=== PATIENT | female | born 1990 | race Caucasian/White ===

== ENCOUNTER → 2024-09-12 16:30 | Outpatient (REF) | payer BC, SELFPAY | LOC: PNTC 16:30 | PROVIDERS: ATTENDING PHYSICIAN Obstetrics & Gynecology | DX: O98.511 Other viral diseases complicating pregnancy, first trimester (principal); O99.612 Diseases of the digestive system complicating pregnancy, second trimester; O99.320 Drug use complicating pregnancy, unspecified trimester; O99.210 Obesity complicating pregnancy, unspecified trimester; E72.12 Methylenetetrahydrofolate reductase deficiency; O09.519 Supervision of elderly primigravida, unspecified trimester | CPT/HCPCS: 76805 ==

== ENCOUNTER → 2024-10-09 14:07 | Outpatient (REF) | payer BC, SELFPAY | LOC: PNTC 14:07 | PROVIDERS: ATTENDING PHYSICIAN Obstetrics & Gynecology | DX: O35.5XX0 Maternal care for (suspected) damage to fetus by drugs, not applicable or unspecified (principal); O98.519 Other viral diseases complicating pregnancy, unspecified trimester; U07.1 COVID-19; O99.210 Obesity complicating pregnancy, unspecified trimester; O44.00 Complete placenta previa NOS or without hemorrhage, unspecified trimester; K50.90 Crohn's disease, unspecified, without complications | CPT/HCPCS: 76811; 76817 ==

== ENCOUNTER → 2024-11-06 09:42 | Outpatient (REF) | payer BC, SELFPAY | LOC: PNTC 09:42 | PROVIDERS: ATTENDING PHYSICIAN Obstetrics & Gynecology | DX: O44.20 Partial placenta previa NOS or without hemorrhage, unspecified trimester (principal); O98.519 Other viral diseases complicating pregnancy, unspecified trimester; O99.320 Drug use complicating pregnancy, unspecified trimester; O99.612 Diseases of the digestive system complicating pregnancy, second trimester | CPT/HCPCS: 76816; 76817 ==

== ENCOUNTER 2025-02-27 19:18 | Inpatient (IN) | payer BC, SELFPAY ==
[2025-02-27 19:21] VITALS: BMI 37.4
[2025-02-27 19:29] VITALS: BP 117/83
[2025-02-27 19:52] LABS: % Basophils 0.3 % (0-2); % Eosinophils 1.1 % (0-6); % Immature Granulocytes 0.5 % (0-0.5); % Lymphocytes 26.7 % (20.5-51.1); % Monocytes 6.6 % (1.7-9.3); % Neutrophils 64.8 % (42.2-75.2); Absolute Eosinophils 0.1 10^3/uL (0-0.7); Absolute Lymphocytes 2.3 10^3/uL (1.2-3.4); Absolute Monocytes 0.6 10^3/uL (0.1-0.6); Absolute Neutrophils 5.7 10^3/uL (1.4-6.5); Hematocrit 34.7 % (37.0-47.0); Mean Corp Hgb Conc. 34.6 g/dL (33.0-37.0); Mean Corpuscular Volume 92.5 fL (81.0-99.0); Mean Platelet Volume 11.8 fL (7.4-10.4); Nucleated Red Blood Cells % 0 %; Platelet Count 257 10^3/uL (130-400); Red Blood Cell Count 3.75 10^6/uL (4.20-5.40); Red Cell Dist. Width 13.7 % (11.5-14.5); White Blood Cell Count 8.7 10^3/uL (4.8-10.8)
[2025-02-27] MEDS: CYTOTEC 25 MICROGRAM VAG (20:17)
[2025-02-28] MEDS: CYTOTEC 50 MICROGRAM PO ×2 (00:02→04:13)
[2025-02-28] MEDS: LR 1000 IV ×2 (00:48→02:05)
[2025-02-28] MEDS: BENADRYL 50 MG PO (02:05)
[2025-02-28] MEDS: STADOL 1 MG IV ×3 (04:13→06:27)
[2025-02-28] MEDS: FENTANYL/BUPIVACAINE 100 EPIDURAL (06:58)
[2025-02-28] MEDS: SUBLIMAZE 100 MCG EPIDURAL (06:58)
[2025-02-28] MEDS: CYTOTEC PO ×2 (08:24→15:04)
[2025-02-28] MEDS: ZOLOFT PO (08:25)
[2025-02-28 14:57] LABS: Cord VBG B.E. - POC -7.3 mmol/L; Cord VBG HCO3 - POC 21 mmol/L; Cord VBG O2 Sat % - POC 36.4 %; Cord VBG pCO2 - POC 53 mmHg; Cord VBG pH - POC 7.21; Cord VBG pO2 - POC 26 mmHg
[2025-02-28] MEDS: TYLENOL 650 MG PO ×2 (17:11→23:08)
[2025-02-28] MEDS: MOTRIN 600 MG PO ×2 (17:11→23:07)
--- NOTE | 2025-03-01 03:31 | DOWNTIME ---
There was a [employer] Client [employer] Downtime on 03/01/2025 from 0200 to 03/01/2024 at 0318 . Downtime documentation of patient's care, including medication administrations, has been reconciled in the electronic record per guidelines. Refer to the
patient's paper chart under the miscellaneous tab to see printed paper medication records and downtime forms.
[2025-03-01 05:38] LABS: Hematocrit 28.2 % (37.0-47.0); Hemoglobin 9.5 g/dL (12.0-16.0)
[2025-03-01] MEDS: PRENATAL PLUS 1 TABLET PO (08:51)
[2025-03-01] MEDS: MOTRIN 600 MG PO ×3 (08:51→22:54)
[2025-03-01] MEDS: SENOKOT-S 1 TABLET PO (08:54)
[2025-03-01] MEDS: TYLENOL 650 MG PO ×2 (08:54→16:49)
[2025-03-01] MEDS: ZOLOFT 25 MG PO (08:55)
--- NOTE | 2025-03-01 12:13 | CM ---
Addendum entered by Judi Granado 03/01/25 16:16:
Referral faxed to Early Intervention
Original Note:
Met with new mom Angie at bedside
Angei reports she lives at listed address with her Andres in a 2SH, confirmed listed phone numbers
Parents have named their son Markos Burns
Mom reports she plans to bottle feed her son
She acknowledges she has all supplies for infant including car seat and crib
Mom reports is supportive and has family support
Peds - [facility]
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
CM consult for Early Intervention - with mild HIE; possible risk for developmental delay
Discussed with mom, Angie. Given information. Mom would like referral for early intervention
Plan - CM will refer for Early Intervention
[2025-03-01 13:21] LABS: Syphilis/T. pallidum Ab Reflex Negative (Negative)
[2025-03-02] MEDS: MOTRIN 600 MG PO (07:29)
[2025-03-02] MEDS: ZOLOFT 25 MG PO ×2 (07:29)
[2025-03-02] MEDS: PRENATAL PLUS 1 TABLET PO (07:29)
== END 2025-03-02 11:48 | disposition home or self-care (01) | DRG 806 ==
LOC: LDRP 19:18
PROVIDERS: Obstetrics & Gynecology; ADMITTING PHYSICIAN Obstetrics & Gynecology; FAMILY PHYSICIAN Family Medicine
PROC: 3E0P7VZ Introduction of Hormone into Female Reproductive, Via Natural or Artificial Opening (ICD-10-PCS; 2025-02-27)
PROC: 4A1HXCZ Monitoring of Products of Conception, Cardiac Rate, External Approach (ICD-10-PCS; 2025-02-27)
PROC: 10H07YZ Insertion of Other Device into Products of Conception, Via Natural or Artificial Opening (ICD-10-PCS; 2025-02-28)
PROC: 0UCG7ZZ Extirpation of Matter from Vagina, Via Natural or Artificial Opening (ICD-10-PCS; 2025-02-28)
PROC: 10E0XZZ Delivery of Products of Conception, External Approach (ICD-10-PCS; 2025-02-28)
DX: O48.0 Post-term pregnancy (principal); K50.90 Crohn's disease, unspecified, without complications; Z37.0 Single live birth; O71.4 Obstetric high vaginal laceration alone; Z3A.40 40 weeks gestation of pregnancy; O99.62 Diseases of the digestive system complicating childbirth; O99.214 Obesity complicating childbirth; O99.344 Other mental disorders complicating childbirth; F32.A Depression, unspecified; Z79.899 Other long term (current) drug therapy; O76 Abnormality in fetal heart rate and rhythm complicating labor and delivery; O90.81 Anemia of the puerperium; O67.8 Other intrapartum hemorrhage
CPT/HCPCS: 88307; 36415; 85014; 85018; 85025; 86780; 86850; 86900; 86901

== ENCOUNTER 2025-06-25 06:33 | Day surgery (SDC) | payer BC, SELFPAY | END 2025-06-25 13:19 | disposition home or self-care (01) | LOC: GI 06:33 | PROVIDERS: ATTENDING PHYSICIAN Internal Medicine Gastroenterology | DX: K64.8 Other hemorrhoids (principal); K57.30 Diverticulosis of large intestine without perforation or abscess without bleeding; K50.80 Crohn's disease of both small and large intestine without complications | CPT/HCPCS: 45380; 88305 ==